=== PATIENT | female | born 1940 | race Caucasian/White ===

== ENCOUNTER → 2017-07-05 | Outpatient (CLI) | payer MEDICARE, OTHER ==
[~2017-07-05] MED LIST: DEXTROSE 5%(*) 100 ML BAG 100 ML IVPB PRN; LIDOCAINE/SOD BICARB 8.4% SYR ID PRN; NS(*) 0.9% 100 ML BAG 100 ML IVPB PRN
[2017-07-05 09:58] VITALS: BP 148/88
[2017-07-05 11:14] VITALS: BP 148/82
== END ==
LOC: SPU 07:34
PROVIDERS: ATTEND Internal Medicine Medical Oncology
DX: E83.19 Other disorders of iron metabolism (principal)
CPT/HCPCS: 85027; 99195

== ENCOUNTER → 2017-07-24 | Outpatient (CLI) | payer MEDICARE, OTHER ==
[2017-07-24 15:41] VITALS: BP 135/76
[2017-07-24 16:00] VITALS: BP 126/69
== END ==
LOC: SPU 09:52
PROVIDERS: ATTEND Internal Medicine Medical Oncology
DX: E83.19 Other disorders of iron metabolism (principal)
CPT/HCPCS: 85014; 99195

== ENCOUNTER 2017-08-14 15:05 | Outpatient (RCR) | payer MEDICARE, OTHER ==
[2017-08-14 15:45] VITALS: BP 168/86
[2017-08-14] MEDS ORDERED: DEXTROSE 5%(*) 100 ML BAG 100 ML IVPB PRN (16:20)
[2017-08-14] MEDS ORDERED: LIDOCAINE/SOD BICARB 8.4% SYR ID PRN (16:20)
[2017-08-14] MEDS ORDERED: NS(*) 0.9% 100 ML BAG 100 ML IVPB PRN (16:20)
[2017-08-14 16:36] VITALS: BP 165/86
== END 2017-10-09 13:49 | disposition home or self-care (01) ==
LOC: SPU 15:05
PROVIDERS: ATTEND Internal Medicine Medical Oncology
DX: E83.19 Other disorders of iron metabolism (principal)
CPT/HCPCS: 85014; 99195

== ENCOUNTER → 2017-08-26 | Outpatient (CLI) | payer MEDICARE, OTHER ==
[2017-08-26 15:00] VITALS: BP 139/68
[2017-08-26 16:06] VITALS: BP 138/59
== END ==
LOC: SPU 08:33
PROVIDERS: ATTEND Internal Medicine Medical Oncology
DX: E83.19 Other disorders of iron metabolism (principal)
CPT/HCPCS: 85014; 99195

== ENCOUNTER → 2017-08-30 | Outpatient (CLI) | payer MEDICARE, OTHER | LOC: LAB 13:30 | PROVIDERS: ATTEND Internal Medicine Medical Oncology | DX: E83.19 Other disorders of iron metabolism (principal); E83.110 Hereditary hemochromatosis | CPT/HCPCS: 36415; 83540; 83550 ==

== ENCOUNTER → 2017-10-24 | Outpatient (CLI) | payer MEDICARE, OTHER ==
[2017-10-24 10:09] LABS: PLATELET COUNT, AUTOMATED 321 K/uL (150-450)
== END ==
LOC: LAB 09:49
PROVIDERS: ATTEND Internal Medicine Medical Oncology
DX: E83.19 Other disorders of iron metabolism (principal); E83.110 Hereditary hemochromatosis
CPT/HCPCS: 36415; 82040; 82247; 82310; 82374; 82435; 82565; 82728; 82947; 83540; 83550; 84075; 84132; 84155; 84295; 84450; 84460; 84520; 85025

== ENCOUNTER → 2017-11-29 | Outpatient (CLI) | payer MEDICARE, OTHER ==
[2017-11-29 14:57] LABS: PLATELET COUNT, AUTOMATED 274 K/uL (150-450)
== END ==
LOC: LAB 14:39
PROVIDERS: ATTEND Internal Medicine Medical Oncology
DX: E83.19 Other disorders of iron metabolism (principal); E83.110 Hereditary hemochromatosis
CPT/HCPCS: 36415; 82040; 82247; 82310; 82374; 82435; 82565; 82728; 82947; 83540; 83550; 84075; 84132; 84155; 84295; 84450; 84460; 84520; 85025

== ENCOUNTER 2017-12-19 13:58 | Outpatient (RCR) | payer MEDICARE, OTHER ==
[2017-12-19 14:35] VITALS: BP 143/61
[2017-12-19] MEDS ORDERED: LIDOCAINE/SOD BICARB 8.4% SYR ID PRN (14:55)
[2017-12-19] MEDS ORDERED: DEXTROSE 5%(*) 100 ML BAG 100 ML IVPB PRN (14:55)
[2017-12-19] MEDS ORDERED: NS(*) 0.9% 100 ML BAG 100 ML IVPB PRN (14:55)
[2017-12-19 15:22] VITALS: BP 142/77
== END 2018-03-18 ==
LOC: SPU 13:58
PROVIDERS: ATTEND Internal Medicine Medical Oncology
DX: E83.19 Other disorders of iron metabolism (principal)
CPT/HCPCS: 85027; 99195

== ENCOUNTER → 2018-02-14 | Outpatient (CLI) | payer MEDICARE, OTHER ==
[2018-02-14 14:49] LABS: PLATELET COUNT, AUTOMATED 315 K/uL (150-450)
== END ==
LOC: LAB 14:25
PROVIDERS: ATTEND Internal Medicine Medical Oncology
DX: E83.19 Other disorders of iron metabolism (principal); E83.110 Hereditary hemochromatosis
CPT/HCPCS: 36415; 82040; 82247; 82310; 82374; 82435; 82565; 82728; 82947; 83540; 83550; 84075; 84132; 84155; 84295; 84450; 84460; 84520; 85025

== ENCOUNTER 2018-04-10 13:58 | Outpatient (RCR) | payer MEDICARE, OTHER ==
[2018-01-29 14:57] VITALS: BP 158/83
[2018-02-12 15:03] VITALS: BP 142/78
[2018-04-10 14:00] VITALS: BP 166/95
[2018-04-10 14:54] VITALS: BP 143/70
== END 2018-04-29 ==
LOC: SPU 13:58
PROVIDERS: ATTEND Internal Medicine Medical Oncology
DX: E83.119 Hemochromatosis, unspecified (principal)
CPT/HCPCS: 36415; 85014; 99195

== ENCOUNTER → 2018-05-01 | Outpatient (CLI) | payer MEDICARE, OTHER ==
--- NOTE | 2018-05-01 10:53 | RADIOLOGY IMAGING REPORT ---
[place] [facility] [place] Hina Mujica : 1940 MR: [id number] V: [id number] EXAM DATE: ORDERING PHYSICIAN: ANNIE SUTHERLAND TECHNOLOGIST: Location: [facility] - [place] Patient: Hina Mujica : 1940 Visit/Account:[id number] Date of Sevice: 05/01/2018 Exam type: BILATERAL RIBS History: Left-sided rib and shoulder pain x2 weeks, no known injury Comparison: None. Findings: Four views the left ribs demonstrates no evidence of acute fracture. There is a small sclerotic dens ity seen along the anterior aspect of the left 10th rib. There is no evidence of pulmonary consolida tion pneumothorax or pleural effusion. Cardiac silhouette appears normal IMPRESSION: 1. No evidence of acute left rib fracture although if symptoms persist follow-up study in several we eks may be helpful to exclude an occult injury There is a small sclerotic density seen along the anterior aspect the left 10th rib. This may simply represent a bone island. If there is clinical concern for metastatic disease bone scan may be helpf ul Report Dictated By: Jacki Marquez MD at 05/01/2018 10:10 AM Report E-Signed By: Jacki Marquez MD at 05/01/2018 10:49 AM WSN:[email or web address]
--- NOTE | 2018-05-01 10:56 | RADIOLOGY IMAGING REPORT ---
FACILITY: [facility] [place] PATIENT NAME: Hina Mujica : 1940 MR: [id number] V: [id number] EXAM DATE: ORDERING PHYSICIAN: ANNIE SUTHERLAND TECHNOLOGIST: Location: [facility] - [place] Patient: Hina Mujica : 1940 Visit/Account:[id number] Date of Sevice: 05/01/2018 Exam type: ARTERIAL BILAT LOWER EXT History: Paresthesias Comparison: None. Findings: There is triphasic flow seen throughout the bilateral lower extremity arterial tree. The peak systol ic velocities in the right lower extremity in centimeters per second are as follows: [employer] 105 Profunda femoral artery 84 SFA proximal 80 SFA mid 99 SFA distal 73 Popliteal proximal 65 Popliteal distal 86 Peroneal 60 Posterior tibial 57 Anterior tibial 77 Dorsalis pedis 40 The peak systolic velocities in the left lower extremity in centimeters per second are as follows: [employer] 119 Profunda femoral artery 84 SFA proximal 92 SFA mid 107 SFA distal 67 Popliteal proximal 76 Popliteal distal 79 Peroneal 55 Posterior tibial 88 Anterior tibial 61 Dorsalis pedis 81 IMPRESSION: 1. No significant stenoses identified in the lower extremity arterial tree bilaterally Report Dictated By: Jacki Marquez MD at 05/01/2018 10:49 AM Report E-Signed By: Jacki Marquez MD at 05/01/2018 10:52 AM WSN:[email or web address]
--- NOTE | 2018-05-01 11:06 | RADIOLOGY IMAGING REPORT ---
FACILITY: [facility] - [place] PATIENT NAME: Hina Mujica : 1940 MR: [id number] V: [id number] EXAM DATE: ORDERING PHYSICIAN: ANNIE SUTHERLAND TECHNOLOGIST: [facility] Patient: Hina Mujica : 1940 Visit/Account:[id number] Date of Sevice: 05/01/2018 Exam type: VENOUS DOPP LOWER BILAT EXTREM History: Leg paresthesias Comparison: None. Findings: The lower extremity veins were imaged bilaterally including the common femoral veins, greater sapheno us vein, superficial femoral vein, popliteal vein, peroneal vein, posterior tibial vein and anterior tibial veins revealing no evidence of intraluminal thrombi. The veins were compressible and demonstr ated augmentation IMPRESSION: 1. No sonographic evidence DVT involving the lower extremity veins bilaterally Report Dictated By: Jacki Marquez MD at 05/01/2018 10:57 AM Report E-Signed By: Jacki Marquez MD at 05/01/2018 11:01 AM WSN:[email or web address]
== END ==
LOC: US 01:31
PROVIDERS: ATTEND Family Medicine
DX: R20.2 Paresthesia of skin (principal); R07.9 Chest pain, unspecified
CPT/HCPCS: 71111; 93925; 93970

== ENCOUNTER 2018-05-26 13:56 | Outpatient (RCR) | payer MEDICARE, OTHER ==
[2018-05-20 14:10] VITALS: BP 164/105
[2018-05-26 14:00] VITALS: BP 169/85
[2018-05-26 14:55] VITALS: BP 160/93
== END 2018-08-17 ==
LOC: SPU 13:56
PROVIDERS: ATTEND Internal Medicine Medical Oncology
DX: E83.119 Hemochromatosis, unspecified (principal)
CPT/HCPCS: 36415; 85014; 99195

== ENCOUNTER → 2018-07-15 | Outpatient (CLI) | payer MEDICARE, OTHER ==
[2018-07-15 11:18] LABS: PLATELET COUNT, AUTOMATED 358 K/uL (150-450)
== END ==
LOC: LAB 10:46
PROVIDERS: ATTEND Internal Medicine Medical Oncology
DX: E83.49 Other disorders of magnesium metabolism (principal); E83.110 Hereditary hemochromatosis
CPT/HCPCS: 36415; 82040; 82247; 82310; 82374; 82435; 82565; 82728; 82947; 83540; 83550; 84075; 84132; 84155; 84295; 84450; 84460; 84520; 85025

== ENCOUNTER 2018-11-25 15:00 | Outpatient (RCR) | payer MEDICARE, OTHER ==
[2018-09-23 15:05] VITALS: BP 160/78
[2018-09-23 15:27] LABS: PLATELET COUNT, AUTOMATED 276 K/uL (150-450)
[2018-11-25 15:20] VITALS: BP 140/76
== END 2018-12-21 ==
LOC: SPU 15:00
PROVIDERS: ATTEND Internal Medicine Medical Oncology
DX: E83.110 Hereditary hemochromatosis (principal)
CPT/HCPCS: 36415; 85014; 85025